=== PATIENT | male | born 1970 | race African-American/Black ===

== ENCOUNTER 2024-04-28 14:14 | Emergency (ER) | payer OTHER, SELFPAY ==
[2024-04-28 14:17] VITALS: BP 149/96
[2024-04-28 14:25] VITALS: BMI 35.7
--- NOTE | 2024-04-28 15:28 | ED.GENMED ---
History of Present Illness
<Rula Christian PA-C - Last Filed: 04/28/24 23:15>
General
Chief Complaint: Skin Problem
Source: patient
Exam Limitations: none
Time Seen by Provider: 04/28/24 15:10
Nursing documentation reviewed up to this point in time: agreed with
History of Present Illness
History of Present Illness:
54 y/o M with h/o gout
says that about 2 weeks ago he started with pain/swelling/redness to ankle and presumed gout
he ended up noticing an abscess develop R lateral ankle and it was fluctuant so 3 days ago he went to his child and adolescent therapist in [place]
who cultured it and ordered xray which was neg and sent him for outpatient MRI which pt is scheduled to have next week. he is not diabetic
pt saw the child and adolescent therapist yesterday who was feeling good about how it was looking, debrided some tissue/scab and it was still draining.
pt today fouind out that the culture grew out mrsa
he has never had mrsa
he has some pain in the ankle with weight bearing but can move the ankle around
no fever, chills, expanding redness, warmth
he is not diabetic.
Past History
<Rula Christian PA-C - Last Filed: 04/28/24 23:15>
Past History
ED Past Medical History: Other (gout)
Social History
Tobacco: Non-smoker
Alcohol: Occasional
Drug: None
Personal:
Living: with family
Review of Systems
<JONATHAN Thakkar Last Filed: 04/28/24 23:15>
Review of Systems
Allergies reviewed?: Yes
All Other Systems: Not applicable
Phy Exam
<JONATHAN Thakkar Last Filed: 04/28/24 23:15>
Physical Exam
Physical Exam:
GENERAL: Alert , in no apparent distress, comfortable at rest
HEAD: NCAT
CV: 2+ DP PULSES B/L
NEUROLOGICAL: Alert and oriented, no focal neuro deficits, , 5/5 strength, sensation intact, ambulation slight limp right leg
SKIN: Warm and dry,
MUSCULOSKELETAL: mild generalized swelling of the ankle but no erythema
wound right lateral ankle just inferior to the malleolus that has a small hole that is draining some yellowish drainage when expressed; the wound is approx 1.5 cm x 1 cm
he has full painless ROM of the ankle
no foot tenderness
no calf tendenres
and a normal pulse
PSYCH: Normal and appropriate interaction.
Course
<Rula Christian PA-C - Last Filed: 04/28/24 23:15>
Orders/Labs/Results
Orders:
Orders
04/28/24 15:42
Clindamycin HCl [Cleocin] 450 mg PO NOW STA
Vital Signs
Initial and Last Documented VS:
Initial Vital Signs
Temp Pulse Resp BP Pulse Ox
98.9 F 100 18 149/96 96
04/28/24 14:17 04/28/24 14:17 04/28/24 14:17 04/28/24 14:17 04/28/24 14:17
Last Documented Vital Signs
Temp Pulse Resp BP Pulse Ox
98.9 F 100 18 149/96 96
04/28/24 14:17 04/28/24 14:17 04/28/24 14:17 04/28/24 14:17 04/28/24 14:17
<Madhu Kline MD - Last Filed: 04/28/24 16:01>
Orders/Labs/Results
Orders:
Orders
04/28/24 15:42
Clindamycin HCl [Cleocin] 450 mg PO NOW STA
Vital Signs
Initial and Last Documented VS:
Initial Vital Signs
Temp Pulse Resp BP Pulse Ox
98.9 F 100 18 149/96 96
04/28/24 14:17 04/28/24 14:17 04/28/24 14:17 04/28/24 14:17 04/28/24 14:17
Last Documented Vital Signs
Temp Pulse Resp BP Pulse Ox
98.9 F 100 18 149/96 96
04/28/24 14:17 04/28/24 14:17 04/28/24 14:17 04/28/24 14:17 04/28/24 14:17
<Rula Christian PA-C - Last Filed: 04/28/24 23:15>
MDM/Problems Addressed
Differential Diagnosis Includes:
ankle infection, septic joint, osteo
MDM/Problems Addressed:
54 y/o M with absces to right lateral ankle managed by an outpatient child and adolescent therapist in [place]
here because he got a call that his wound culture grew out mrsa and his abx do not cover it
it is overall healing well
has been draining, debrieded
no systemic symptoms
alreayd had xray neg for osteo and has mri scheduled
is requesting diff abx
seen by ed attending who agrees that ankle does not appear septic, full rom, nof ever and overall improvementn of the infection itself
will switch him to clinda
probiotic encouraged
return precuations,
<Rula Christian PA-C - Last Filed: 04/28/24 23:15>
*Critical Care Note
Total Time (30-74mins, 75-104mins- exclusive of procedures): Not Applicable
ED Attending Note
<Rula Christian PA-C - Last Filed: 04/28/24 23:15>
-
Portions of this chart may have been created with voice recognition software.� Occasional wrong word or��sound alike� substitutions may have occurred due to the inherent limitations of voice recognition software.
<Madhu Kline MD - Last Filed: 04/28/24 16:01>
ED Attending Note
Patient seen and examined by attending physician: Yes
I performed the substantive portion of visit, reviewed & personally made and approve the management plan that is documented in note by myself or AMINATA.: Yes
ED Attending Note:
54-year-old male some swelling tenderness to the right lateral ankle. History of gout. Previously some swelling had been thought secondary to gout. No fever or chills. Developed an open draining wound. Culture showed MRSA. Had been on
Augmentin. Patient came in because of the wound culture result. He denies fever chills he denies joint pain. Actually the wound feels much better. Recent x-ray was negative.
Open wound over the right lateral malleolus. Minimal drainage at this time. No significant surrounding cellulitis. No joint swelling no pain with joint motion. Good distal pulses and color.
Patient is nontoxic and in no distress. Ankle is warm and dry. No ankle swelling. No warmth. No pain with joint motion. Open wound to the lateral ankle with some minimal drainage.
Culture was reviewed. Sensitive to clindamycin. Labs would prove nothing at this time. X-ray was recently done. Has an outpatient MRI pending for osteomyelitis. Nothing to support a joint infection. Will change to clindamycin and follow-up
Discharge Plan
Departure
Patient Disposition: Home (Routine Discharge)
Date of Disposition: 04/28/24
Time of Disposition: 15:42
Patient with high blood pressure during this ER visit?: No
Condition: Fair
Covid-19: Not Applicable
Discharge Problem:
Abscess of ankle, MRSA (methicillin resistant staph aureus) culture positive
Instructions: Wound Care (DC), Skin Abscess
Prescriptions:
New
clindamycin HCl 300 mg capsule
600 mg PO TID 10 Days Qty: 60 0RF
Activity Restrictions/Additional Instructions:
YOUR ANTIBIOTIC WAS CHANGED TO CLINDAMYCIN 600 MG
TAKE IT 3 TIMES ADAY FOR 10 DAYS
USE A PROBIOITC WHILE ON THIS MEDICATION
BE AWARE THAT IT CAN CAUSE DIARRHEA, AND IF YOU HAVE PROFUSE DIARRHEA LALA RICKS GET CHECKED OUT
FOLLOW UP WITH YOUR SUPERINTENDENT SANITATION SCHEDULED
ELEVATE THE LEG, KEEP THE WOUND CLEAN
GET YOUR MRI NEXT WEEK
RETURN FOR ANY CONCERNS, SWELLING, REDNESS, INABILITY TO MOVE THE ANKLE, FEVER, CHILLS,WORSE PAIN OR ANY CONCERNS.
Interventions
Interventions:
*Risk Screen - Suicide Last Done: 04/28/24 14:17
*General Assessment Last Done: 04/28/24 14:17
*Neglect/Abuse Screening Last Done: 04/28/24 14:17
ED- Fall Risk Assessment Last Done: 04/28/24 14:25
*ED COVID-19 Vaccine History Last Done: 04/28/24 14:17
*Nursing Disposition Last Done: 04/28/24 16:15
ED-Skin Assessment Last Done: 04/28/24 14:25
Discharge Date and Time
Discharge Date/Time: 04/28/24 16:16
Print Language: MACEDONIAN
[2024-04-28] MEDS: CLEOCIN 450 MG PO (16:06)
== END 2024-04-28 16:16 | disposition home or self-care (01) ==
LOC: EMR 14:14
PROVIDERS: EMERGENCY PHYSICIAN Emergency Medicine; FAMILY PHYSICIAN Nurse Practitioner Adult Health
DX: L02.415 Cutaneous abscess of right lower limb (principal); B95.62 Methicillin resistant Staphylococcus aureus infection as the cause of diseases classified elsewhere
CPT/HCPCS: 99283